=== PATIENT | female | born 1945 | race Caucasian/White ===

== ENCOUNTER 2016-05-08 16:18 | Outpatient (CLI) | payer MEDICARE, OTHER | END 2016-05-08 16:19 | disposition home or self-care (01) | DX: M51.36 Other intervertebral disc degeneration, lumbar region (principal); M47.816 Spondylosis without myelopathy or radiculopathy, lumbar region; M16.11 Unilateral primary osteoarthritis, right hip; M54.5 Low back pain ==

== ENCOUNTER 2016-12-31 14:27 | Outpatient (CLI) | payer MEDICARE, OTHER ==
--- NOTE | 2017-01-01 15:28 | DEXA Report ---
DEXA SCAN: 12/31/2016 CLINICAL INDICATION: Postmenopausal. TECHNIQUE: Dual energy x-ray absorptiometry (DXA) was performed on a [employer]rav[employer] system. Regions measured are the AP spine, femoral neck, and, if needed, forearm. COMPARISON: None. In accordance with the International Society for Clinical Densitometry (ISCD) guidelines, data from previous exams may be reanalyzed using current recommendations and techniques. This is done to allow a more accurate basis for comparison with the current study. FINDINGS LUMBAR SPINE DATA: REGION BMD (g/cm/cm) T-SCORE Z-SCORE L1 0.894 -2.0 -0.8 L2 1.029 -1.4 -0.3 L3 1.217 0.1 1.3 L4 1.364 1.4 2.5 TOTAL 1.140 -0.3 0.8 NOTE: All evaluable vertebrae are used for classification. HIP DATA: REGION BMD (g/cm/cm) T-SCORE Z-SCORE Neck 0.823 -1.6 -0.1 TOTAL 0.790 -1.7 -0.5 NOTE: The femoral neck or total proximal femur, whichever is lowest, is used for classification. IMPRESSION THE WHO CLASSIFICATION BASED ON THE INTERNATIONAL REFERENCE STANDARD: OSTEOPENIA. FRACTURE RISK: INCREASED. RECOMMENDATION: Patients with diagnosis of osteoporosis or osteopenia should have regular bone mineral density assessment. For those eligible for Medicare, routine testing is allowed once every 2 years. Testing frequency can be increased for patients who have rapidly progressing disease or for those who are receiving medical therapy to restore bone mass. COMMENT: World Health Organization (WHO) definitions for osteoporosis and osteopenia: NORMAL BMD: T-score at -1.0 or higher, fracture risk is low. OSTEOPENIA BMD: T-score between -1.0 and -2.5, fracture risk is increased. OSTEOPOROSIS BMD: T-score at -2.5 or lower, fracture risk high. National Osteoporosis Foundation recommends: 1. Obtain adequate dietary calcium (at least 1200 mg per day) and vitamin D (400 -800 international units per day). 2. Participate, as appropriate, in regular weightbearing and muscle- strengthening exercise. 3. Avoid tobacco use and reduce alcohol and caffeine intake. 4. For more detailed information see the website at www.NOF.org. MTDD
== END 2016-12-31 14:28 | disposition home or self-care (01) ==
LOC: DI 14:27
PROVIDERS: ATTEND Physician Assistant
DX: M85.88 Other specified disorders of bone density and structure, other site (principal)
CPT/HCPCS: 77080

== ENCOUNTER 2017-01-12 12:03 | Outpatient (CLI) | payer MEDICARE, OTHER ==
--- NOTE | 2017-01-13 12:48 | Mammography Report ---
DIGITAL SCREENING MAMMOGRAM: 01/12/2017 CLINICAL INDICATION: A 71-year-old for screening. COMPARISON: 11/2015, 07/2014, 02/2013, 10/2011 TECHNIQUE: Routine CC and MLO projections were obtained of the breasts. FINDINGS: The breasts again demonstrate heterogeneously dense fibroglandular parenchyma bilaterally. Coarse and punctate, typically benign calcifications are present. Intramammary lymph nodes are sta ble. No suspicious masses, clustered microcalcifications, or regions of architectural distortion are identified. IMPRESSION: BENIGN FINDINGS. RECOMMENDATION: Routine annual screening unless otherwise clinically indicated. BIRADS CATEGORY 2 - BENIGN FINDINGS. STANDARD QUALIFYING STATEMENTS 1. This examination was reviewed with the aid of Computer-Aided Detection (CAD). 2. A negative or benign imaging report should not delay biopsy if clinically suspicious findings are present. Consider surgical consultation if warranted. More than 5% of cancers are not identified by i maging. 3. Dense breasts may obscure an underlying neoplasm. JOB #: [id number] EXT JOB #:[id number]
== END 2017-01-12 12:04 | disposition home or self-care (01) ==
LOC: DI 12:03
PROVIDERS: ATTEND Physician Assistant
DX: Z12.31 Encounter for screening mammogram for malignant neoplasm of breast (principal)
CPT/HCPCS: 77067

== ENCOUNTER 2018-03-06 09:16 | Outpatient (CLI) | payer MEDICARE, OTHER ==
--- NOTE | 2018-03-08 09:04 | Mammography Report ---
Reason: SCREENING MAMMO Procedure Date: 03/06/2018 Accession Number: [id number] / [id number] Procedure: MINERVA - Screening Mammo w/Josh CPT Code: FULL RESULT: EXAM: Screening Mammo w/Josh DATE: 03/06/2018 10:19 AM CLINICAL HISTORY: Screening encounter. History of fine-needle biopsy and family history of breast cancer in 2 paternal first-degree cousins. TECHNIQUE: Bilateral CC and MLO views were obtained. COMPARISON: 01/12/2017 through 02/24/2013. FINDINGS: The breasts demonstrate scattered fibroglandular densities bilaterally. Typically benign coarse bilateral calcifications as well as typically benign vascular bilateral calcifications are noted. No suspicious masses, clustered microcalcifications, or regions of architectural distortion are identified. IMPRESSION: Benign findings RECOMMENDATION: Routine annual screening unless otherwise clinically indicated. BIRADS CATEGORY 2: Benign findings STANDARD QUALIFYING STATEMENTS: 1. This examination was not reviewed with the aid of Computer-Aided Detection (CAD). 2. A negative or benign imaging report should not preclude biopsy if clinically suspicious findings are present. 3. Dense breasts may obscure an underlying neoplasm. 4. This examination was reviewed with the aid of 3D breast imaging (tomosynthesis).
== END 2018-03-06 09:17 | disposition home or self-care (01) ==
LOC: DI 09:16
DX: Z12.31 Encounter for screening mammogram for malignant neoplasm of breast (principal); Z80.3 Family history of malignant neoplasm of breast
CPT/HCPCS: 77063; 77067

== ENCOUNTER 2019-04-05 19:09 | Outpatient (CLI) | payer MEDICARE, OTHER ==
--- NOTE | 2019-04-06 00:57 | Ultrasound Report ---
Reason: LUQ PAIN Procedure Date: 04/05/2019 Accession Number: [id number] / [id number] Procedure: US - Abdomen Limited CPT Code: Final Report FULL RESULT: EXAM: ABDOMEN ULTRASOUND LIMITED EXAM DATE: 04/05/2019 07:50 PM. CLINICAL HISTORY: LUQ PAIN. COMPARISON: None. TECHNIQUE: Real-time scanning was performed with static images obtained. FINDINGS: Spleen: 9.5 x 4.4 x 8.8 cm, volume 192 cc. No focal abnormalities. Left kidney: 10.5 cm. No hydronephrosis. Simple appearing 4.2 cm cyst. No shadowing calculi. IMPRESSION: No acute sonographic abnormalities. RADIA
== END 2019-04-05 19:10 | disposition home or self-care (01) ==
LOC: DI 19:09
PROVIDERS: ATTEND Internal Medicine
DX: R10.12 Left upper quadrant pain (principal)
CPT/HCPCS: 76705

== ENCOUNTER 2019-04-15 13:49 | Outpatient (CLI) | payer MEDICARE, OTHER ==
--- NOTE | 2019-04-19 11:10 | DEXA Report ---
Reason: BONE DISORDER Procedure Date: 04/15/2019 Accession Number: [id number] / [id number] Procedure: DEX - Dexa Spine and/or Hip CPT Code: Final Report FULL RESULT: EXAM: Dexa Spine and/or Hip DATE: 04/15/2019 2:44 PM CLINICAL HISTORY: BONE DISORDER TECHNIQUE: Dual energy x-ray absorptiometry (DXA) was performed on a [employer] System. Regions measured are the AP Spine, femoral neck, and if needed forearm. COMPARISON: 12/31/2016. In accordance with the International Society for Clinical Densitometry (ISCD) guidelines, data from previous exams may be reanalyzed using current recommendations and techniques. This is done to allow a more accurate basis for comparison with the current study. FINDINGS: The data for the lumbar spine is as follows: BMD (g/cm/cm) T-SCORE Z-SCORE REGION L1 0.904 -1.9 -0.8 L2 1.091 -0.9 0.2 L3 1.327 1.1 2.2 L4 1.322 1.0 2.1 TOTAL 1.164 -0.1 1.0 NOTE: All evaluable vertebrae are used for classification The data for the hip is as follows: BMD (g/cm/cm) T-SCORE Z-SCORE REGION Neck 0.777 -1.9 -0.3 TOTAL 0.773 -1.9 -0.5 NOTE: The femoral neck or total proximal femur, whichever is lowest, is used for classification. DXA RESULTS SUMMARY: Spine SCAN DATE AGE BMD CHANGE VS CHANGE VS PREVIOUS PREVIOUS % 2/15/2019 [age] 1.89 0.024 2.1 12/31/2016 [age] 1.140 * Denotes significant change at the 95% confidence level. Denotes dissimilar scan types or analysis methods. DXA RESULTS SUMMARY: Hip SCAN DATE AGE BMD CHANGE VS CHANGE VS PREVIOUS PREVIOUS % 04[age]15/2019 [age] 0.773 -0.017 -2.2 12[birth year]31[birth year]2016 [age] 0.790 * Denotes significant change at the 95% confidence level. Denotes dissimilar scan types or analysis methods. IMPRESSION: THE WHO CLASSIFICATION BASED ON THE INTERNATIONAL REFERENCE STANDARD IS OSTEOPENIA. THE FRACTURE RISK IS INCREASED. RECOMMENDATION: Patients with diagnosis of osteoporosis or osteopenia should have regular bone mineral density assessment. For those eligible for Medicare, routine testing is allowed once every 2 years. Testing frequency can be increased for patients who have rapidly progressing disease or for those who are receiving medical therapy to restore bone mass. COMMENT: World Health Organization (WHO) definitions for osteoporosis and osteopenia: NORMAL BMD: T-score at -1.0 or higher, fracture risk is low OSTEOPENIA BMD: T-score between -1.0 and -2.5, fracture risk is increased. OSTEOPOROSIS BMD: T-score at -2.5 or lower, fracture risk is high. National Osteoporosis Foundation recommends: 1. Obtain adequate dietary calcium (at least 1200 mg per day) and vitamin D (400-800 international units per day). 2. Participate, as appropriate, in regular weightbearing and muscle-strengthening exercise. 3. Avoid tobacco use and reduce alcohol and caffeine intake. 4. For more detailed information see the website at www.NOF.org.
== END 2019-04-15 13:50 | disposition home or self-care (01) ==
LOC: DI 13:49
PROVIDERS: ATTEND Internal Medicine
DX: M85.88 Other specified disorders of bone density and structure, other site (principal)
CPT/HCPCS: 77080

== ENCOUNTER 2019-04-22 15:51 | Outpatient (CLI) | payer MEDICARE, OTHER ==
--- NOTE | 2019-04-25 09:24 | Mammography Report ---
Reason: SCREENING MAMMO Procedure Date: 04/22/2019 Accession Number: [id number] / [id number] Procedure: MINERVA - Screening Mammo w/Josh CPT Code: Final Report FULL RESULT: EXAM: Screening Mammo w/Josh DATE: 04/22/2019 4:22 PM CLINICAL HISTORY: Screening encounter. TECHNIQUE: (B) - Bilateral CC and MLO views were obtained. COMPARISON: 03/06/2018 through 11/06/2011. PARENCHYMAL PATTERN: (D) - The breast(s) demonstrate(s) heterogeneously dense fibroglandular parenchyma. FINDINGS: There are no suspicious masses, calcifications, or areas of distortion. IMPRESSION: Negative examination. BI-RADS category 1. RECOMMENDATION: (ANNUAL) - Recommend routine annual screening mammography. BI-RADS CATEGORY: (1) - Negative. STANDARD QUALIFYING STATEMENTS: 1. This examination was not reviewed with the aid of Computer-Aided Detection (CAD). 2. A negative or benign imaging report should not preclude biopsy if clinically suspicious findings are present. 3. Dense breasts may obscure an underlying neoplasm. 4. This examination was reviewed with the aid of 3D breast imaging (tomosynthesis).
== END 2019-04-22 15:52 | disposition home or self-care (01) ==
LOC: DI 15:51
DX: Z12.31 Encounter for screening mammogram for malignant neoplasm of breast (principal)
CPT/HCPCS: 77063; 77067

== ENCOUNTER 2020-05-24 11:19 | Outpatient (CLI) | payer MEDICARE, OTHER ==
--- NOTE | 2020-05-25 07:48 | Mammography Report ---
BILATERAL DIGITAL SCREENING MAMMOGRAM 3D/2D: 05/24/2020 CLINICAL: Routine screening. Comparison is made to exams dated: 04/22/2019 mammogram, 03/06/2018 mammogram, 01/12/2017 mammogram, mammogram, and 11/19/2015 mammogram - [facility]. The tissue of both breast s is heterogeneously dense. This may lower the sensitivity of mammography. No significant masses, calcifications, or other findings are seen in either breast. There has been no significant interval change. IMPRESSION: NEGATIVE There is no mammographic evidence of malignancy. A 1 year screening mammogram is recommended. This exam was interpreted at Station ID: [id number]. NOTE: For mammograms, a report in lay terms will be sent to the patient. Approximately 15% of breast malignancies will not be visualized mammographically. In the management of a palpable breast mass, a negative mammogram must not discourage biopsy of a clinically suspicious lesion. Electronically Signed By: Ray Zimmerman M.D. ddcalista/penlolita:05/24/2020 11:59:13 ACR BI-RADS Category 1: Negative 3341F PARENCHYMAL PATTERN: (D) - The breast(s) demonstrate(s) heterogeneously dense fibroglandular parcorby kelley. BI-RADS CATEGORY: (1) - 1 RECOMMENDATION: (ANNUAL) - Recommend routine annual screening mammography. [id number] 1 year screening LATERALITY: (B)
== END 2020-05-24 11:20 | disposition home or self-care (01) ==
LOC: DI 11:19
PROVIDERS: ATTEND Physician Assistant
DX: Z12.31 Encounter for screening mammogram for malignant neoplasm of breast (principal)

== ENCOUNTER 2020-09-21 11:56 | Outpatient (CLI) | payer MEDICARE, OTHER ==
--- NOTE | 2020-09-25 07:48 | XRAY Report ---
PROCEDURE: Foot 3 View LT INDICATIONS: PAIN 1ST MP JOINT L FOOT X 6 WEEKS TECHNIQUE: 3 views of the foot were acquired. COMPARISON: None. FINDINGS: Cortical step-off at the proximal phalanx of the fifth toe at the level of the PIP joint raise the po ssibility of intra-articular fracture although technically age indeterminate and recommend correlatio n with point tenderness. Moderate first MTP joint degeneration. Diffuse interphalangeal osteoarthritis. Diffuse tarsometatarsa l joint degeneration. Unfused accessory navicular incidentally noted. IMPRESSION: Diffuse degenerative changes as above. Possible age indeterminate fracture of the fifth toe proximal phalanx at the level of PIP joint. Plea se see comment above Moderate first MTP joint degeneration. Reviewed by: Akil Sotelo MD on 09/21/2020 1:14 PM PDT Approved by: Akil Sotelo MD on 09/21/2020 1:14 PM PDT Station ID: [id number]
== END 2020-09-21 11:57 | disposition home or self-care (01) ==
LOC: DI 11:56
PROVIDERS: ATTEND Podiatrist
DX: M19.072 Primary osteoarthritis, left ankle and foot (principal)

== ENCOUNTER 2021-04-24 14:23 | Outpatient (CLI) | payer MEDICARE, OTHER ==
--- NOTE | 2021-04-24 16:40 | DEXA Report ---
PROCEDURE: Dexa Spine and/or Hip INDICATIONS: OSTEOPENIA / BONE DISORDERS TECHNIQUE: Dual energy x-ray absorptiometry (DXA) was performed on a [employer] System. Regions measur ed are the AP Spine, femoral neck, and if needed forearm. COMPARISON: 04/15/2019 and 12/21/2016. FINDINGS: Lumbar Spine: Bone Mineral Density 1.15 to g/cm/cm,T score -0.2, normal Left Hip: Bone Mineral Density 0.731 g/cm/cm,T score -2.2, osteopenia Left Femoral Neck: Bone Mineral Density 0.75 g/cm/cm, T score -2.0, osteopenia (T score greater or equal to -1.0: NORMAL) (T score from -1.1 to -2.4: OSTEOPENIA) (T score less than or equal to -2.5 to: OSTEOPOROSIS) Impression: Osteopenia. Bone marrow density has decreased 5.4% interval since prior exam obtained 04/15/2019. Patients with diagnosis of osteoporosis or osteopenia should have regular bone mineral density assess ment. For those eligible for Medicare, routine testing is allowed once every 2 years. Testing frequ ency can be increased for patients who have rapidly progressing disease or for those who are receivin g medical therapy to restore bone mass. Reviewed by: Frida Wolfe MD, PhD on 04/24/2021 4:38 PM PST Approved by: Frida Wolfe MD, PhD on 04/24/2021 4:38 PM PST Station ID: [id number]
== END 2021-04-24 14:24 | disposition home or self-care (01) ==
LOC: DI 14:23
PROVIDERS: ATTEND Physician Assistant
DX: M85.89 Other specified disorders of bone density and structure, multiple sites (principal)

== ENCOUNTER 2021-06-16 20:07 | Emergency (ER) | payer MEDICARE, OTHER ==
--- NOTE | 2021-06-16 21:12 | ED Physician Documentation ---
History of Present Illness - Stated complaint Stated Complaint: R WRIST INJ - Chief complaint Chief Complaint: Trauma Ext - Additonal information Additional information: 76-year-old female presents emergency department for evaluation of acute right wrist pain. She was helping her daughter with a bookcase leaned against it and the bookcase broke. She fell forward on an outstretched hand and now has pain in the wrist since. She does endorse a history of arthritis in this wrist. She is right-hand dominant Review of Systems Constitutional: denies: Fever, Chills Eyes: reports: Reviewed and negative Nose: reports: Reviewed and negative GI: reports: Reviewed and negative : reports: Reviewed and negative Musculoskeletal: reports: Joint pain PD PAST MEDICAL HISTORY - Allergies Allergies/Adverse Reactions: Allergies Allergy/AdvReac Type Severity Reaction Status Date / Time Sulfa (Sulfonamide Allergy Nausea Verified 06/16/21 20:14 Antibiotics) PD ED PE EXPANDED - General General: Alert, No acute distress - Extremities Extremities: Right wrist (Tenderness on the dorsum of the wrist mostly over the radial side. No swelling deformity. 2+ radial pulse. She does have diminished cap refill in her hands but she also reports a history of Raynaud's. No snuffbox tenderness) Results - Vitals Vitals: Vital Signs - 24 hr 06/16/21 20:14 Temperature 36.6 C Heart Rate 80 Respiratory 16 Rate Blood Pressure 150/80 H O2 Saturation 100 Oxygen O2 Source Room air - Rads (name of study) right wrist Radiology: EMP read indepedently (Arthritic changes at the MCP joint of the thumb. No obvious fracture identified) PD MEDICAL DECISION MAKING - ED course Complexity details: considered differential, d/w patient ED course: 76-year-old female presents for acute right wrist pain after a FOOSH at home. She does have arthritis at the first joint of the MCP. She also has fairly significant Raynaud's. There is tenderness on the dorsum of the wrist mostly on the radial side. Normal flexion extension. Negative snuffbox. I am somewhat suspicious of an occult fracture but given her Raynaud's history would defer placing her in a fiberglass splint especially as the x-ray is read as negative. Therefore patient is placed in a thumb spica Velcro wrist. She is advised that if she has persistent pain after 7 to 10 days the wrist should be magalie-rayed. Emergent return precautions otherwise discussed Departure - Departure Disposition: 01 Home, Self Care Clinical Impression: Right wrist pain Condition: Stable Record reviewed to determine appropriate education?: Yes Comments: Halina rogers are seen today in the emergency department for pain in your right wrist after a fall at home. The x-ray does not show an obvious fracture you do however have obvious arthritis at the first joint of your thumb. Because of your Raynaud's I do not want to place you in a fiberglass splint. However and a cult or difficult to see fracture is not fully ruled out. Please wear your Velcro wrist splint as often as possible. If you continue to have pain after 7 to 10 days your primary care provider should consider ordering a repeat x-ray of this wrist. If at any point you have fevers, significant wrist swelling redness or any concerns of infection then please return immediately to the ER for a second evaluation
--- NOTE | 2021-06-16 21:36 | XRAY Report ---
PROCEDURE: Wrist 4 View RT INDICATIONS: Trauma TECHNIQUE: 4 views of the wrist were acquired. COMPARISON: None. FINDINGS: Bones: No acute fractures or dislocations. There is irregularity of the fifth proximal phalanx sugge sting sequelae of prior trauma. There is moderate degeneration at the first carpometacarpal joint wit h joint space narrowing, subchondral sclerosis and osteophytosis, and subchondral cystic changes. The re is mild degeneration at the triscaphe articulation and radiocarpal joint. Visualized osseous struc tures appear osteopenic. No suspicious bony lesions. Scaphoid view: The scaphoid appears intact. Soft tissues: No suspicious soft tissue calcifications. IMPRESSION: Rebound. No acute fracture or dislocation. 2. Moderate osteoarthritic changes at the first carpometacarpal joint as well as mild degeneration of the triscaphe articulation and radiocarpal joint. Reviewed by: Ray Zimmerman MD on 06/16/2021 9:35 PM PDT Approved by: Ray Zimmerman MD on 06/16/2021 9:35 PM PDT Station ID: [id number]
[2021-06-16 21:48] VITALS: BP 160/83
== END 2021-06-16 21:58 | disposition home or self-care (01) ==
LOC: ED 20:07
DX: S69.91XA Unspecified injury of right wrist, hand and finger(s), initial encounter (principal); W08.XXXA Fall from other furniture, initial encounter
CPT/HCPCS: 99282; 99283

== ENCOUNTER 2021-06-21 09:44 | Outpatient (CLI) | payer MEDICARE, OTHER ==
--- NOTE | 2021-06-21 16:45 | XRAY Report ---
PROCEDURE: X-RAY OF THE RIGHT HAND MINIMUM THREE VIEWS INDICATIONS: Hand pain right TECHNIQUE: 3 views of the hand(s) acquired. COMPARISON: None. FINDINGS: Bones: No fracture or dislocation. Moderate to severe first CMC osteoarthritic changes. Moderate to s evere osteoarthritic changes in the second, third, fourth, and to a lesser degree fifth distal interp halangeal joints. Mild to moderate degenerative changes at the triscaphe joint. No suspicious bony le sions. Soft tissues: No suspicious soft tissue calcifications. IMPRESSION: No fracture identified. Moderate to severe osteoarthritic change in the distal interphalangeal joints of the second through f ifth digits. Moderate osteoarthritic change at the first CMC with moderate osteoarthritis at the triscaphe joint. Reviewed by: Jos Rudd MD on 06/21/2021 4:43 PM PDT Approved by: Jos Rudd MD on 06/21/2021 4:43 PM PDT Station ID: [id number]
--- NOTE | 2021-06-21 16:46 | XRAY Report ---
PROCEDURE: Wrist 3 View RT INDICATIONS: FALL ONTO RIGHT HAND AND WRIST TECHNIQUE: 3 views of the right wrist were acquired. COMPARISON: None FINDINGS: No fracture identified. Moderate to severe first CMC degenerative changes and moderate degenerative c hanges at the triscaphe joint. IMPRESSION: No fracture or other acute finding. Reviewed by: Jos Rudd MD on 06/21/2021 4:44 PM PDT Approved by: Jos Rudd MD on 06/21/2021 4:44 PM PDT Station ID: [id number]
== END 2021-06-21 09:45 | disposition home or self-care (01) ==
LOC: DI 09:44
PROVIDERS: ATTEND Physician Assistant
DX: M25.531 Pain in right wrist (principal); M19.041 Primary osteoarthritis, right hand; M18.11 Unilateral primary osteoarthritis of first carpometacarpal joint, right hand

== ENCOUNTER 2021-06-22 13:37 | Emergency (ER) | payer MEDICARE, OTHER ==
[2021-06-22 13:54] VITALS: BP 154/75
--- NOTE | 2021-06-22 14:30 | ED Physician Documentation ---
PD HPI UPPER EXT INJURY - Stated complaint Stated Complaint: R ARM PX - Chief complaint Chief Complaint: Trauma Ext - History obtained from History obtained from: Patient, Family - History of Present Illness Location: Right, Wrist Type of injury: Fall Where injury occurred: Home Timing - onset: How many days ago (6) Timing - duration: Days (6) Timing - details: Abrupt onset, Still present Improved by: Rest, Immobilization Worsened by: Moving, Palpating Associated symptoms: Swelling, Discolored. No: Weakness, Numbness Contributing factors: No: Anticoagulated Similar symptoms before: Has not had sx before Recently seen: Emergency Dept - Additonal information Additional information: 76-year-old Halina Sofia has had a fall at her home onto her outstretched right hand. She has injured her wrist she was seen in the emergency department and splinted with a sprain. She does have a lot of arthritis in the metacarpophalangeal joint. Patient has had an increase in her pain especially today and early in the morning she had to rip off her splint because of the pain spiked. She is coming to the emergency department today again for evaluation. She has been in see her primary and is had a second x-ray done which was also negative. This was done a little prematurely. She developed some bruising that made her extremely concerned because it had not been present previously this was on her forearm and an area that is nontender. Review of Systems Constitutional: denies: Fever Ears: denies: Ear pain Nose: denies: Congestion Throat: denies: Sore throat Respiratory: denies: Cough GI: denies: Vomiting Musculoskeletal: reports: Extremity pain, Joint pain, Extremity swelling, Joint swelling PD PAST MEDICAL HISTORY - Past Medical History Past Medical History: Yes - Allergies Allergies/Adverse Reactions: Allergies Allergy/AdvReac Type Severity Reaction Status Date / Time Sulfa (Sulfonamide Allergy Nausea Verified 06/22/21 13:53 Antibiotics) - Social History Does the pt smoke?: No Smoking Status: Never smoker PD ED PE NORMAL - Vitals Vital signs reviewed: Yes (Hypertensive) - General General: Alert and oriented X 3, No acute distress, Well developed/nourished - HEENT HEENT: Atraumatic, PERRL, EOMI - Respiratory Respiratory: No respiratory distress - Derm Derm: Normal color, Warm and dry - Extremities Extremities: Other (There is swelling and point tenderness to the dorsum of the wrist especially over the anatomic snuffbox. There is discoloration of the skin over the volar surface of the forearm and over the dorsal surface of the forearm. Has the appearance of tract blood. There is normal ROM at the elbow) - Neuro Neuro: Alert and oriented X 3, commanding officer motorized squad 2-12 intact, No motor deficit, No sensory deficit, Normal speech Eye Opening: Spontaneous Motor: Obeys Commands Verbal: Oriented GCS Score: 15 - Psych Psych: Normal mood, Normal affect Results - Vitals Vitals: Vital Signs - 24 hr 06/22/21 13:51 Temperature 36.4 C L Heart Rate 80 Respiratory 16 Rate Blood Pressure 154/75 H O2 Saturation 100 Oxygen O2 Source Room air Procedures - Splint (location) right wrist Splint applied by: Tech Type of splint: Fiberglass, Volar cock up Other: Patient tolerated well, No complications, Neurovascular intact, Good alignment, Sling provided PD MEDICAL DECISION MAKING - ED course Complexity details: reviewed old records, reviewed results, re-evaluated patient, considered differential, d/w patient, d/w family ED course: 76-year-old female with a sprained right wrist has been placed into a thumb spica without improvement today were placed into a volar fiberglass splint for comfort. I have indicated the patient she will need to have an x-ray done at about the 10-day wen. Departure - Departure Disposition: 01 Home, Self Care Clinical Impression: Right wrist sprain Qualifiers: Encounter type: initial encounter Qualified Code(s): S63.501A - Unspecified sprain of right wrist, initial encounter Condition: Stable Instructions: ED Sprain Wrist Follow-Up: ERICK LY PA-C [Primary Care Provider] - Comments: Halina today it looks like your wrist has been sprained and we have placed have placed you into a more comfortable splint. Our expectation is generally more comfort. It is important with this particular sprain to have a second x-ray done 10 to 14 days after the initial injury. Follow-up with your primary to get a referral for this x-ray. Discharge Date/Time: 06/22/21 14:53
== END 2021-06-22 14:53 | disposition home or self-care (01) ==
LOC: ED 13:37
DX: S63.501A Unspecified sprain of right wrist, initial encounter (principal); W19.XXXA Unspecified fall, initial encounter; M25.531 Pain in right wrist; M19.041 Primary osteoarthritis, right hand; M18.11 Unilateral primary osteoarthritis of first carpometacarpal joint, right hand
CPT/HCPCS: 99282

== ENCOUNTER 2021-07-08 06:00 | Outpatient (CLI) | payer MEDICARE, OTHER ==
--- NOTE | 2021-07-08 17:11 | XRAY Report ---
PROCEDURE: Wrist 4 View RT INDICATIONS: RIGHT WRIST SPRAIN TECHNIQUE: 4 views of the wrist were acquired. COMPARISON: 06/21/2021 FINDINGS: Bones: There is now very subtle evidence of a nondisplaced fracture involving the radial styloid and metaphyseal region of the radius. A fracture line does extend to the articular surface. There is joaquin y minimal fracture lucency now present. 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 Scaphoid view: Scaphoid intact Soft tissues: No suspicious soft tissue calcifications. IMPRESSION: Very subtle subacute fracture of the distal radius as described above. Disuse osteopenia. Reviewed by: Narciso Bermudez MD on 07/08/2021 5:09 PM PDT Approved by: Narciso Bermudez MD on 07/08/2021 5:09 PM PDT Station ID: [id number]
== END 2021-07-08 23:59 | disposition home or self-care (01) ==
LOC: DI.WOS 06:00
PROVIDERS: ATTEND Physician Assistant
DX: S52.514D Nondisplaced fracture of right radial styloid process, subsequent encounter for closed fracture with routine healing (principal); M85.88 Other specified disorders of bone density and structure, other site

== ENCOUNTER 2021-07-18 12:59 | Outpatient (CLI) | payer MEDICARE, OTHER ==
--- NOTE | 2021-07-19 07:54 | Mammography Report ---
BILATERAL DIGITAL SCREENING MAMMOGRAM 3D/2D: 07/18/2021 CLINICAL: Routine screening. Comparison is made to exams dated: 05/24/2020 mammogram, 04/22/2019 mammogram, and 03/06/2018 mammogram - [facility]. The tissue of both breasts is heterogeneously dense. This may lower t he sensitivity of mammography. No significant masses, calcifications, or other findings are seen in either breast. There has been no significant interval change. IMPRESSION: NEGATIVE There is no mammographic evidence of malignancy. A 1 year screening mammogram is recommended. This exam was interpreted at Station ID: [id number]. NOTE: For mammograms, a report in lay terms will be sent to the patient. Approximately 15% of breast malignancies will not be visualized mammographically. In the management of a palpable breast mass, a negative mammogram must not discourage biopsy of a clinically suspicious lesion. Electronically Signed By: Jerry Quigley M.D. ar/penrad:07/18/2021 14:13:22 ACR BI-RADS Category 1: Negative 3341F PARENCHYMAL PATTERN: (D) - The breast(s) demonstrate(s) heterogeneously dense fibroglandular raffaele kelley. BI-RADS CATEGORY: (1) - 1 RECOMMENDATION: (ANNUAL) - Recommend routine annual screening mammography. [id number] 1 year screening LATERALITY: (B)
== END 2021-07-18 13:00 | disposition home or self-care (01) ==
LOC: DI.N 12:59
PROVIDERS: ATTEND Physician Assistant
DX: Z12.31 Encounter for screening mammogram for malignant neoplasm of breast (principal)

== ENCOUNTER 2022-10-01 14:23 | Outpatient (CLI) | payer MEDICARE, OTHER ==
--- NOTE | 2022-10-01 21:10 | XRAY Report ---
PROCEDURE: Foot 3 View RT INDICATIONS: RT FOOT PAIN TECHNIQUE: 3 views of the foot were acquired. COMPARISON: None. FINDINGS: Bones: No fractures or dislocations. No suspicious bony lesions. Large plantar calcaneal spur Soft tissues: No suspicious soft tissue calcifications or masses. IMPRESSION: Large calcaneal spur Reviewed by: Bhavesh Fagan MD on 10/01/2022 8:09 PM AKDT Approved by: Bhavesh Fagan MD on 10/01/2022 8:09 PM AKDT Station ID: [id number]
== END 2022-10-01 14:24 | disposition home or self-care (01) ==
LOC: DI 14:23
PROVIDERS: ATTEND Podiatrist
DX: M77.31 Calcaneal spur, right foot (principal)

== ENCOUNTER 2023-01-29 15:39 | Outpatient (CLI) | payer MEDICARE, OTHER | END 2023-01-29 15:40 | disposition home or self-care (01) | LOC: RT 15:39 | PROVIDERS: ATTEND Internal Medicine Cardiovascular Disease | DX: Z53.9 Procedure and treatment not carried out, unspecified reason (principal) ==

== ENCOUNTER 2023-01-30 14:07 | Outpatient (CLI) | payer MEDICARE, OTHER | END 2023-01-30 14:08 | disposition home or self-care (01) | LOC: RT 14:07 | PROVIDERS: ATTEND Internal Medicine Cardiovascular Disease | DX: R53.83 Other fatigue (principal) | CPT/HCPCS: 93005 ==

== ENCOUNTER → 2023-03-20 | Outpatient (CLI) | payer MEDICARE, OTHER ==
--- NOTE | 2023-03-20 15:41 | Sleep Patient Instructions ---
Sleep Center Visit Summary - Patient Visit Information Reason for Visit: Initial consult for evaluation of sleep disordered breathing and other sleep issues. - Patient Instructions Instructions Attached: Sleep Study Additional Instructions: You will be completing a sleep study, either an in-lab polysomnography (PSG) or home sleep study (HST). You will follow-up in the sleep care office after the sleep study is completed to hear the results and talk about therapy, if needed. You will be called by our office staff to schedule this appointment, but you may contact us with any questions. - Clinic Information Contact: [facility] [address] [place] [address] [email or web address] T: [phone]
--- NOTE | 2023-03-20 15:46 | SLEEP CARE CONSULTATION ---
Information from patient questionnaire entered by Rito Lerner. I have reviewed and concur with the information entered by Rito Lerner. This document represents the service I personally performed and the decisions made by me, Carlie Romero ARNP. History of Present Illness Service Date and Time: 03/20/2023 1503 Reason for Visit: New patient Chief Complaint: reports: Fatigue, Frequent awakenings at night Date of Onset: 3-4MONTHS Usual bedtime: 1AM Time it takes to fall asleep: 20-30MIN Snores at night: No Observed to quit breathing while asleep: No Sleeps alone due to snoring: No Number of times waking at night: 2-3 Reasons for waking at night: reports: Bathroom, Other (UNKNOWN). denies: Choking, Gasping for air Toss, Turn, or Twitch while sleeping: No Recalls having dreams: Yes Usually gets out of bed at: 9-10AM Feels refreshed in the morning: No Morning headache: No Sleepy or fatigued during the day: Yes Ever fallen asleep while driving: No Takes day naps: Yes (1 time a week, recently) Dreams during day naps: No Prior sleep studies: No Additional HPI information: I had the pleasure of seeing LUCITA EM today regarding the possibility of her having a sleep disorder. Her current complaints are fatigue and frequent night awakenings. She says she was having a couple bouts of fatigue and her PA recommended she have a sleep study. Her daughter wanted her to get checked by exceptional student education aide and they have done testing but she does not yet have results. She says she goes to bed about 1 AM. She tried to go to bed earlier, 1030 PM, but would wake up at 1 AM and not be able to sleep. She has returned to going to bed at 1 AM. She gets up between 9-11 AM. She does not wake up feeling rested. She only has been having these bouts of fatigue in the last 4-5 months. She says she has never been told that she snores or stops breathing during sleep. She has a history of hypertension and anxiety. - Parasomnia Symptoms Ever been unable to move upon waking from sleep: No Walks in sleep: No Talks in sleep: No Ever acted out dreams in sleep: No Ever felt weak in the knees when startled or emotional: Yes Bothered by creepy, crawly, restless sensations in legs: Yes (burning in right leg/hip area) Problems with memory or concentration: No Subjective Initial [place] Sleepiness Scale score: 7 (02/23/23) Past Medical History Past Medical History: reports: Hypertension, Arthritis, Anxiety Social History The patient's occupation is a RE. Patient is and lives in . Have you smoked in the past 12 months: No Cigarettes per day (20/pack): 20 Years of smokin Quit date: 1983 Smoking Pack Years: 23.0 Alcohol use: No Caffeine use: No Family History Family history of sleep disordered breathing: Yes Family Hx Sleep Apnea: Father: Snoring Allergies and Home Medications Known drug allergies: Yes (sulfa and peanuts) Drug allergies reviewed: Yes Home medication list reviewed: Yes Allergy and home medication list: Allergies Sulfa (Sulfonamide Antibiotics) Allergy (Verified 03/18/23 16:17) Nausea Home Medications Medication Instructions Recorded Confirmed Last Taken Type Areds 2 See Rx Instructions .ROUTE .COMPLEX 03/20/23 03/20/23 Unknown History Ascorbic Acid [Vitamin C] See Rx Instructions .ROUTE .COMPLEX 03/20/23 03/20/23 Unknown History Aspirin [Vazalore] See Rx Instructions .ROUTE .COMPLEX 03/20/23 03/20/23 Unknown History Atorvastatin [Lipitor] See Rx Instructions .ROUTE .COMPLEX 03/20/23 03/20/23 Unknown History Calcium Carbonate [Calcium] See Rx Instructions .ROUTE .COMPLEX 03/20/23 03/20/23 Unknown History Cholecalciferol (Vitamin D3) See Rx Instructions .ROUTE .COMPLEX 03/20/23 03/20/23 Unknown History [Vitamin D3] Lactobacillus Combination No.4 See Rx Instructions .ROUTE .COMPLEX 03/20/23 03/20/23 Unknown History [Probiotic] Losartan [Cozaar] See Rx Instructions .ROUTE .COMPLEX 03/20/23 03/20/23 Unknown History Multivit-Min/Iron/Folic/Lutein See Rx Instructions .ROUTE .COMPLEX 03/20/23 03/20/23 Unknown History [Multivitamin Women 50 Plus Tab] Oxybutynin [Oxytrol For Women] See Rx Instructions .ROUTE .COMPLEX 03/20/23 03/20/23 Unknown History Trolamine Salicylate [Arthricream] See Rx Instructions .ROUTE .COMPLEX 03/20/23 03/20/23 Unknown History amLODIPine [Norvasc] See Rx Instructions .ROUTE .COMPLEX 03/20/23 03/20/23 Unknown History Review of Systems Weight gain over past 5 years: 5-10 Weight loss over past 5 years: 5-10 Cardiovascular: reports: high blood pressure Gastrointestinal: denies: heartburn Urinary: reports: frequency Neurological: denies: headaches Psychiatric: reports: anxiety Ear/Nose/Throat: reports: tonsillectomy Endocrine: reports: too hot or cold, unexplained weakness Musculoskeletal: reports: joint pain Immunologic: reports: allergies to food or environment Physical Exam Vital signs obtained and entered by: RITO Craft MA Blood Pressure: 143/80 (LEFT ARM) Cuff size: regular Heart Rate: 74 O2 Saturation: 98 Height: 5 ft 8 in Weight: 178 lb Body Mass Index: 27.0 BMI Classification: Overweight Neck circumference: 13.5 Mouth and throat: narrow oropharynx Soft palate: normal Hard palate: normal Uvula: normal Uvula visualization: 50% Mallampati Class II Tongue: enlarged in size with teeth em on lateral edges Tonsils: absent bilaterally Neck: normal w/o lymphadenopathy or thyromegaly Heart: regular rate and rhythm Lungs: clear bilaterally Impression and Plan 1. Suspected Obstructive Sleep Apnea-Hypopnea Syndrome, as suggested by a history of unrefreshed sleep, fatigue and excessive daytime sleepiness. She has a history of hypertension. Narrow oropharynx and obesity are common predisposing factors for obstructive sleep apnea-hypopnea syndrome. I recommend proceeding to polysomnography to confirm the diagnosis and to assess severity. If the patient has significant sleep disordered breathing, a manual CPAP titration study will also be performed to find the optimal treatment pressure. I informed the patient of what the sleep studies involve and after some discussion, obtained agreement to proceed. The pathophysiology of obstructive sleep apnea-hypopnea syndrome was discussed with the patient and health risks of cardiovascular and cerebrovascular disease if not treated. Risks of drowsy driving discussed in detail and patient advised to avoid long distance driving and to order puller at the first sign of drowsiness. Patient agreed to plan. * Schedule polysomnography. * Avoid long distance driving or driving when feeling sleepy. * Avoid alcohol, sedative and muscle relaxant around bedtime. * Attempt to lose weight. * Review instructions provided by trained office staff on how to prepare for the sleep study. * Return for follow-up after sleep study completed. Counseling Topics: Weight loss health impact Plan: PSG Visit Type: In Office Time Spent with Patient (minutes): 31 Provider Statement: I spent 100% of the Face to Face Visit with the patient with greater than 50% spent counseling the patient and coordination of care.
[2023-03-20 15:58] VITALS: BP 143/80; O2SAT 98
== END ==
LOC: SC 15:03
PROVIDERS: ATTEND Nurse Practitioner Family
DX: G47.10 Hypersomnia, unspecified (principal); R53.83 Other fatigue; G47.8 Other sleep disorders; I10 Essential (primary) hypertension; Z87.891 Personal history of nicotine dependence; E66.3 Overweight; Z68.27 Body mass index [BMI] 27.0-27.9, adult
CPT/HCPCS: 99203; G0463; 99212

== ENCOUNTER 2023-04-08 20:20 | Outpatient (CLI) | payer MEDICARE, OTHER | END 2023-04-08 20:21 | disposition home or self-care (01) | LOC: SC 20:20 | PROVIDERS: ATTEND Nurse Practitioner Family | DX: G47.33 Obstructive sleep apnea (adult) (pediatric) (principal); E66.3 Overweight; Z68.27 Body mass index [BMI] 27.0-27.9, adult | CPT/HCPCS: 95810 ==

== ENCOUNTER 2023-04-16 10:06 | Outpatient (CLI) | payer MEDICARE, OTHER ==
--- NOTE | 2023-04-16 09:59 | SLEEP CARE CONSULTATION ---
Information from patient questionnaire entered by Lhu Lerner. I have reviewed and concur with the information entered by Luh Lerner. This document represents the service I personally performed and the decisions made by , Carlie Romero ARNP. History of Present Illness Service Date and Time: 04/16/2023 0940 Initial [place] Sleepiness Scale score: 7 Current [place] Sleepiness Scale score: 7 Additional HPI information: LUCITA EM returns via telephone appointment for follow up and results of the recently performed polysomnography. The sleep study showed mild obstructive sleep apnea with an average AHI of 8.3 and rupert oxygen saturation of 82%. I explained the pathophysiology behind obstructive sleep apnea. We then spent quite a bit of time discussing different treatment options. For mild obstructive sleep apnea, surgery and oral appliance are alternatives to nasal CPAP therapy but in moderate or severe cases, nasal CPAP is the most effective and reliable treatment. Because apnea is primarily in supine position, then positional management therapy could be effective. Methods discussed such as positioning with pillows, using a T-shirt with tennis balls in the back or commercial products that have a pillow format on back to prevent supine sleep. I reviewed the impact of weight changes on sleep apnea and strongly recommended losing weight. After some discussion, the patient opted to go with positional therapy for now. Patient was cautioned about risks of drowsy driving until sleepiness symptoms resolve. Sleep Study - Results Type of Sleep Study: Polysomnography (COMPLETED ON 04/08/23) Prior sleep studies: No Polysomnography/Home Sleep Study results: IMPRESSION: The quality of the study is good. The patient had slightly reduced sleep efficiency due to three awakenings during the night. The sleep architecture was normal. Respiratory monitoring showed mild obstructive sleep apnea-hypopnea (AHI = 8.3) associated with frequent arousals, oxyhemoglobin desaturation and mild hypoxia (rupert oxygen saturation of 82%). The respiratory events occurred almost exclusively during supine sleep (supine AHI = 25.7; non-supine = 1.24). Snore was intermittent and light in intensity. There was no significant periodic leg movement of sleep. Cardiac rhythm was normal sinus rhythm without significant arrhythmia. No abnormal behavior (parasomnia) observed during the night. Allergies and Home Medications Known drug allergies: Yes (as listed) Drug allergies reviewed: Yes Home medication list reviewed: Yes (no changes) Allergy and home medication list: Allergies peanut Allergy (Verified 04/14/23 13:04) Anaphylaxis Sulfa (Sulfonamide Antibiotics) Allergy (Verified 04/14/23 13:04) Nausea Review of Systems Review of systems same as previous: Yes (eye issues-waiting on cataract surgery) Physical Exam Vital signs obtained and entered by: CARLIE CHAU Blood Pressure: 120/65 (one week ago-per pt) Height: 5 ft 9 in (per pt) Weight: 174 lb (per pt) Body Mass Index: 25.7 BMI Classification: Overweight Impression and Plan 1. Obstructive Sleep Apnea-Hypopnea Syndrome, mild, with lowest oxygen saturation of 82%. Obviously this is the cause of the patients symptoms of unrefreshed sleep, and excessive daytime sleepiness. Positive pressure therapy could benefit hypertension and anxiety. I did encourage patient to do CPAP therapy because I thought it would make a significant difference but she does not want to look into that right now because of her eye issues. She is having some pain in her eyes and she is working closely with eye doctor for surgery at this time. Since patients apnea is primarily in supine position, patient advised to try positional therapy and agreed with plan. Follow up is scheduled f or one month to check effectiveness and if further evaluation or change in therapy. 2. Hypoxemia, mild, with a rupert oxygen saturation of 82% and 56.2 minutes spent under 90%. The baseline oxygen saturation was normal with an average oxygen saturation of 90%. * Positional therapy * Maintain a healthy weight. * Avoid supine sleep. * Return in 1-2 months for follow up. I will assess response to therapy at that time. Follow up with Sleep Care in: 1-2 months (for Positional therapy) Visit Type: Telehealth Phone Video Type: Maxine Patient Location: Home Location of Provider: Office Patient agrees and consents to this telehealth visit type: Yes Time Spent with Patient (minutes): 17 Provider Statement: I spent 100% of the Telehealth Phone Call with the patient with greater than 50% spent counseling the patient and coordination of care.
[2023-04-16 10:17] VITALS: BP 120/65
== END 2023-04-16 10:07 | disposition home or self-care (01) ==
LOC: SC 10:06
PROVIDERS: ATTEND Nurse Practitioner Family
DX: G47.33 Obstructive sleep apnea (adult) (pediatric) (principal); R09.02 Hypoxemia
CPT/HCPCS: 99442

== ENCOUNTER 2023-05-21 07:30 | Day surgery (SDC) | payer MEDICARE, OTHER ==
[2023-05-21] MEDS: LACTATED RINGERS 1,000 ML IV ONE (07:40)
[2023-05-21] MEDS: KETOROLAC 0.45% OPHTH DROPS ONE (08:00)
[2023-05-21] MEDS: PROPARACAINE 0.5% OPHTH DROPS 15 ML ONE (08:00)
[2023-05-21] MEDS: PHENYLEPHRINE 2.5% OPHTH 2 ML DROPS ONE (08:05)
--- NOTE | 2023-05-21 08:30 | ANESTHESIA ---
Pre-Anesthesia VS, & Labs - Diagnosis right cataract - Procedure right cataract extraction with IOL Vital Signs: Temp Pulse Resp BP Pulse Ox O2 Flow Rate 36.3 C L 83 12 167/75 H 100 05/21/23 07:53 05/21/23 07:53 05/21/23 07:53 05/21/23 07:53 05/21/23 07:53 Height: 5 ft 9 in Weight (kg): 78.7 kg Body Mass Index: 25.6 BMI Classification: Overweight - NPO >8 hours - Is Patient ?: No Home Medications and Allergies Areds 2 See Rx Instructions .ROUTE .COMPLEX 03/20/23 Ascorbic Acid [Vitamin C] See Rx Instructions .ROUTE .COMPLEX 03/20/23 Aspirin [Vazalore] See Rx Instructions .ROUTE .COMPLEX 03/20/23 Atorvastatin [Lipitor] See Rx Instructions .ROUTE .COMPLEX 03/20/23 Calcium Carbonate [Calcium] See Rx Instructions .ROUTE .COMPLEX 03/20/23 Cholecalciferol (Vitamin D3) [Vitamin D3] See Rx Instructions .ROUTE .COMPLEX 03/20/23 Lactobacillus Combination No.4 [Probiotic] See Rx Instructions .ROUTE .COMPLEX 03/20/23 Losartan [Cozaar] See Rx Instructions .ROUTE .COMPLEX 03/20/23 Multivit-Min/Iron/Folic/Lutein [Multivitamin Women 50 Plus Tab] See Rx Instructions .ROUTE .COMPLEX 03/20/23 Oxybutynin [Oxytrol For Women] See Rx Instructions .ROUTE .COMPLEX 03/20/23 Trolamine Salicylate [Arthricream] See Rx Instructions .ROUTE .COMPLEX 03/20/23 amLODIPine [Norvasc] See Rx Instructions .ROUTE .COMPLEX 03/20/23 Allergies/Adverse Reactions: Allergies Allergy/AdvReac Type Severity Reaction Status Date / Time peanut Allergy Anaphylaxis Verified 04/14/23 13:04 Sulfa (Sulfonamide Allergy Nausea Verified 04/14/23 13:04 Antibiotics) Anes History & Medical History - Anesthetic History Anesthesia Complications: reports: No previous complications - Medical History Cardiovascular: reports: Hypertension, High cholesterol Smoking Status: Never smoker - Surgical History General: reports: Colonoscopy Gynecologic: reports: Hysterectomy Exam General: Alert Dental: WNL, Dentures full Upper (left home) Mouth Opening: Greater than 4 Fingerbreadths Neck Mobility: Normal Mallampati classification: II Thyromental Distance: greater than 6 cm Respiratory: Lungs clear Cardiovascular: Regular rate Plan Anesthesia Type: MAC Consent for Procedure(s) Verified and Reviewed: Yes Code Status: Attempt Resuscitation ASA classification: 2-Mild systemic disease Is this case an emergency?: No
[2023-05-21] MEDS ORDERED: MIDAZOLAM 2 MG/2 ML VIAL ONE (08:31)
[2023-05-21] MEDS ORDERED: fentaNYL 100 MCG/2 ML VIAL ONE (08:31)
[2023-05-21] MEDS ORDERED: BRIMONIDINE 0.2% OPHTH DROPS 5 ML ONE (08:44)
[2023-05-21] MEDS ORDERED: TIMOLOL 0.5% OPHTH DROPS ONE (08:44)
[2023-05-21] MEDS ORDERED: EPINEPHrine 1 MG/ML AMP ONE (08:44)
[2023-05-21] MEDS ORDERED: TRIAMCIN/MOXIFLOX OPHTHALMIC 0.6 ML VIAL IO ONE (08:44)
[2023-05-21] MEDS ORDERED: BSS/LIDOCAINE/EPINEPHRINE 1 ML VIAL ONE (08:44)
[2023-05-21] MEDS: BRIMONIDINE 0.2% OPHTH DROPS 5 ML OPTH ONE (08:51)
[2023-05-21] MEDS: EPINEPHrine 1 MG/ML AMP IR ONE (08:51)
[2023-05-21] MEDS: BSS/LIDOCAINE/EPINEPHRINE 1 ML SYRINGE IO ONE (08:52)
[2023-05-21] MEDS: VANCOMYCIN OPHTH (TOPICAL) 10 MG/ML SYRINGE TOP ONE (08:52)
[2023-05-21] MEDS: TIMOLOL 0.5% OPHTH DROPS OPTH ONE (08:52)
[2023-05-21] MEDS: TRIAMCIN/MOXIFLOX OPHTHALMIC 0.6 ML VIAL IO ONE (08:52)
[2023-05-21] MEDS: PROPARACAINE 0.5% OPHTH DROPS 15 ML RIGHTEYE ONE (08:52)
[2023-05-21] MEDS: LACTATED RINGERS 500 ML IV ONE (09:22)
--- NOTE | 2023-05-21 09:34 | OPERATIVE REPORT ---
Operative Report - Other Other Information/Narrative: Date of Surgery: 05/21/23 Preop Dx: Visually significant cataract right eye. This was the first cataract surgery. Postop Dx: Same Procedure: Phacoemulsification with posterior chamber intraocular lens implant right eye Surgeon: Dr. Chris Dobson Anesthesia: Monitored anesthesia care Complications: None Operative Indications: This is a 78-year-old F with progressive vision loss in the right eye due to 3-4+ nuclear sclerotic cataract. Best corrected visual acuity was 20/40 with glare to 20/80 vision in the right eye. Indications for surgery were: - Overall decrease in vision - Difficulty seeing words on a computer screen - Difficulty seeing words, closed captions, or game scores on TV - Difficulty seeing street signs - Difficulty driving in low light or at night - Difficulty driving at night because of headlights from other vehicles - Difficulty with glare or bright lights in any situation The patient was consented at length concerning the risks and benefits of cataract surgery after which the patient expressed a desire to proceed with surgery. Operative Procedure: The patient was taken into OR#3 and placed under monitored anesthesia care. A surgical time-out was conducted confirming correct patient, correct procedure, and correct surgical site. The patient was given topical anesthesia and then prepped and draped in the usual sterile fashion. The eye was entered at the 6 and 3 oclock positions. Intracameral Shugarcaine was injected into the anterior chamber followed by a dispersive viscoelastic. A continuous-tear curvilinear capsulorhexis was performed. The nucleus was hydrodissected and phacoemulsified. The cortex was evacuated using automated infusion and aspiration. A cohesive viscoelastic was injected into the capsular bag and a 22.5 diopter intraocular lens was inserted into the bag. Infusion and aspiration were used to evacuate the viscoelastic materials from the eye. The wounds were hydrated and the eye inflated to physiologic pressure using balanced salt solution. Approximately 0.25ml of a mixture of triamcinolone and moxifloxacin was injected trans-sclerally into the vitreous in the inferotemporal quadrant using a 30 gauge cannula. An additional 0.25ml of a mixture of triamcinolone AND moxifloxacin was injected subconjunctivally in the superior quadrant for infection and inflammation prophylaxis. Wound integrity was checked with Weck-Malathi sponges. The patient was taken from the operating room in good condition and given post-op instructions.
[2023-05-21 09:45] VITALS: BP 142/59; O2SAT 100
--- NOTE | 2023-05-21 10:26 | ANESTHESIA POST OP EVALUATION ---
Anesthesia Post Eval - Post Anesthesia Eval Vitals: Last Vital Signs Temp 36.3 C L 05/21/23 09:37 Pulse 71 05/21/23 09:37 Resp 16 05/21/23 09:37 BP 142/59 H 05/21/23 09:37 Pulse Ox 100 05/21/23 09:37 O2 Flow Rate CV Function Including HR & BP: Stable Pain Control: Satisfactory Nausea & Vomiting: Negative Mental Status: Baseline Respiratory Status: Airway Patent Hydration Status: Satisfactory Anesthesia Complications: None
== END 2023-05-21 07:31 | disposition home or self-care (01) ==
LOC: SDS 07:30
PROVIDERS: ATTEND Ophthalmology
DX: H25.11 Age-related nuclear cataract, right eye (principal); I10 Essential (primary) hypertension; Z87.891 Personal history of nicotine dependence
CPT/HCPCS: 66984; A9270; J3490; J7120

== ENCOUNTER 2023-06-11 10:20 | Outpatient (CLI) | payer MEDICARE, OTHER ==
--- NOTE | 2023-06-11 10:17 | SLEEP CARE CONSULTATION ---
Information from patient questionnaire entered by Luh Lerner. I have reviewed and concur with the information entered by Luh Lerner. This document represents the service I personally performed and the decisions made by me, Carlie Romero ARNP. History of Present Illness Service Date and Time: 06/11/2023 1000 Previous diagnosis: Mild, Obstructive Sleep Apnea-Hypopnea Syndrome AHI: 8.3 (04/08/23) Reason for follow up: other (2 MONTH F/U POSITIONAL THERAPY ) Prior sleep studies: No Type of Sleep Study: Polysomnography (04/08/23) HPI additional information: LUCITA EM was diagnosed to have mild, AHI 8.3, obstructive sleep apnea- hypopnea syndrome and returns via telephone visit today for positional therapy two month follow-up. Sleep Study - Results Prior sleep studies: No CPAP Compliance Data Compliance data discussion: She has been able to manage to sleep on her side most of the time. She is not using any devices at this time to keep her on her side but normally finds herself on her side when she wakes up. She is avoiding taking naps in afternoon and is sleeping better at night. Subjective On therapy, patient: reports: sleeping better, awakening more refreshed, more rested overall. denies: drowsiness while driving Initial Rembert Sleepiness Scale score: 7 Current Rembert Sleepiness Scale score: 6 (06/11/23) Allergies and Home Medications Known drug allergies: Yes (as listed) Drug allergies reviewed: Yes Home medication list reviewed: Yes (no changes; temporary antibiotics) Allergy and home medication list: Allergies peanut Allergy (Verified 06/09/23 09:35) Anaphylaxis Sulfa (Sulfonamide Antibiotics) Allergy (Verified 06/09/23 09:35) Nausea Review of Systems Review of systems same as previous: No (CATARACT SUGERY AND NAVAL INFECTION) Physical Exam Vital signs obtained and entered by: LUH Craft MA Height: 5 ft 8.5 in (PER PT) Weight: 173 lb (PER PT) Body Mass Index: 25.9 BMI Classification: Overweight Impression and Plan 1. Obstructive Sleep Apnea-Hypopnea Syndrome, mild. Using positional therapy, the patient has better sleep quality and is more rested overall. She is avoiding taking naps in the daytime and is sleeping much better at night. She feels staying off her back is maintainable and comfortable at this time. I will have her come back in 3 months to re-check how she is doing and make changes as needed. She voiced understanding and agreement with plan of care. Patient's apnea severity and rationale for treatment to reduce apnea, improve sleep quality and reduce cardiovascular and cerebrovascular events was reviewed. I also reviewed the benefit of consistency with therapy for hypertension, anxiety. 2. Overweight, unspecified. Currently patients BMI is 25.9. Obesity increases the risk of apnea, CPAP pressure requirements and overall health risks es pecially cardiovascular and diabetes. Thus patient is advised to maintain a healthy weight. * Continue positional therapy, avoid sleeping supine * Maintain a healthy weight * Call this office if any problems * Return for follow up in 3 months, or sooner if concerns arise Counseling Topics: Sleeping position, Weight control Visit Type: Telehealth Phone Video Type: Maxine Patient Location: Home Location of Provider: Office Patient agrees and consents to this telehealth visit type: Yes Time Spent with Patient (minutes): 11 Provider Statement: I spent 100% of the Telehealth Phone Call with the patient with greater than 50% spent counseling the patient and coordination of care.
== END 2023-06-11 10:21 | disposition home or self-care (01) ==
LOC: SC 10:20
PROVIDERS: ATTEND Nurse Practitioner Family
DX: G47.33 Obstructive sleep apnea (adult) (pediatric) (principal); E66.3 Overweight; Z68.25 Body mass index [BMI] 25.0-25.9, adult
CPT/HCPCS: 99442

== ENCOUNTER 2023-07-06 13:20 | Outpatient (CLI) | payer MEDICARE, OTHER ==
--- NOTE | 2023-07-07 10:19 | Mammography Report ---
BILATERAL DIGITAL SCREENING MAMMOGRAM 3D/2D: 07/06/2023 CLINICAL: Routine screening. Comparison is made to exams dated: 07/18/2021 mammogram, 05/24/2020 mammogram, 03/06/2018 mammogram, and 04/22/2019 mammogram - [facility]. Both breasts are heterogeneously dense, which may obscure small masses (category c / 51-75% glandular tissue). There are benign vascular calcifications in both breasts. No significant masses, calcifications, or other findings are seen in either breast. There has been no significant interval change. IMPRESSION: BENIGN There is no mammographic evidence of malignancy. A 1 year screening mammogram is recommended. Based on the Tyrer Cuzick model (a risk assessment model) the patient's lifetime risk is 2.3% and her 10 year risk is 0.0%. According to the ACR, ACS, and NCCN guidelines, an annual breast MRI exam lynsey g with mammogram is recommended if the patient's lifetime risk is 20% or greater. This exam was interpreted at Station ID: [id number]. NOTE: For mammograms, a report in lay terms will be sent to the patient. Approximately 15% of breast malignancies will not be visualized mammographically. In the management of a palpable breast mass, a negative mammogram must not discourage biopsy of a clinically suspicious lesion. Electronically Signed By: Daron rain/luis:07/06/2023 19:10:36 letter sent: No_Letter ACR BI-RADS Category 2: Benign Finding(s) 3342F PARENCHYMAL PATTERN: (D) - The breast(s) demonstrate(s) heterogeneously dense fibroglandular parcorby kelley. BI-RADS CATEGORY: (2) - 2 RECOMMENDATION: (ANNUAL) - Recommend routine annual screening mammography. [id number] 1 year screening LATERALITY: (B)
== END 2023-07-06 13:21 | disposition home or self-care (01) ==
LOC: DI 13:20
PROVIDERS: ATTEND Nurse Practitioner Family
DX: Z12.31 Encounter for screening mammogram for malignant neoplasm of breast (principal); R92.333 Mammographic heterogeneous density, bilateral breasts

== ENCOUNTER 2023-09-02 08:00 | Outpatient (CLI) | payer MEDICARE, OTHER | END 2023-09-02 23:59 | disposition home or self-care (01) | LOC: LAB.N 08:00 | PROVIDERS: ATTEND Physician Assistant Medical | DX: U07.1 COVID-19 (principal) ==

== ENCOUNTER 2023-09-21 14:48 | Outpatient (CLI) | payer MEDICARE, OTHER ==
--- NOTE | 2023-09-22 17:24 | DEXA Report ---
PROCEDURE: Dexa Spine and/or Hip INDICATIONS: POST MENOPAUSAL TECHNIQUE: Dual energy x-ray absorptiometry (DXA) was performed on a [employer] System. Regions measur ed are the AP Spine, femoral neck, and if needed forearm. COMPARISON: DEXA on April 24, 2021 FINDINGS: Lumbar Spine: Bone Mineral Density: 1.126 g/cm/cm,T score: -0.5. There has been no statistically significant corley e in bone mineral density since the prior study. Left Femoral Neck: Bone Mineral Density: 0.713 g/cm/cm, T score: -2.3. Left Hip: Bone Mineral Density: 0.703 g/cm/cm,T score: -2.4. There has been no statistically significant change in bone mineral density since the prior study. FRAX risk factors: None given. 10 year risk of major osteoporotic fracture: 18.3% major osteoporotic fracture = hip, clinical vertebral, proximal humerus, distal forearm 10 year risk of hip fracture: 6.2% (T score greater or equal to -1.0: NORMAL) (T score from -1.1 to -2.4: OSTEOPENIA) (T score less than or equal to -2.5 to: OSTEOPOROSIS) Impression: By WHO criteria, this patient has low bone density (osteopenia). No statistical interval change in bone mineral density of the lumbar spine. No statistical interval c hange in bone mineral density of the hip. The 10 year risk of major osteoporotic fracture is 18.3% and of a hip fracture is 6.2%. Patients with diagnosis of osteoporosis or osteopenia should have regular bone mineral density assess ment. For those eligible for Medicare, routine testing is allowed once every 2 years. Testing frequ ency can be increased for patients who have rapidly progressing disease or for those who are receivin g medical therapy to restore bone mass. Reviewed by: Odell Bernstein MD on 09/22/2023 5:23 PM PDT Approved by: Odell Bernstein MD on 09/22/2023 5:23 PM PDT Station ID: [id number]
== END 2023-09-21 14:49 | disposition home or self-care (01) ==
LOC: DI 14:48
PROVIDERS: ATTEND Nurse Practitioner Family
DX: M85.89 Other specified disorders of bone density and structure, multiple sites (principal)